=== PATIENT | female | born 1985 | race Caucasian/White ===

== ENCOUNTER 2021-07-30 13:13 | Inpatient (IN) | payer MEDICAID ==
[2021-07-30] VITALS (8 sets, daily range): BP systolic 90–123; BP diastolic 60–76
[~2021-07-30] VITALS: Ht 162.6 cm; Wt 112.0 kg
[2021-07-30] MEDS ORDERED: WITCH HAZEL-GLYCERIN PAD TOP PRN (13:45)
[2021-07-30] MEDS ORDERED: PROMETHAZINE HCL 25 MG/ML 1ML IV PRN (13:45)
[2021-07-30] MEDS ORDERED: DERMOPLAST 60ML BOTTLE TOP PRN (13:45)
[2021-07-30] MEDS ORDERED: PHISODERM TOP SOLN 240ML BTL TOP PRN (13:45)
[2021-07-30] MEDS ORDERED: BUTORPHANOL TARTRATE 2 MG/1 ML VIAL IV PRN ×2 (13:45)
[2021-07-30] MEDS ORDERED: LIDOCAINE 2%HCL (LOCAL ANESTH.) INJ 10ml MDV IJ PRN (13:45)
[2021-07-30 14:13] LABS: Basophils # (auto) 0.2 10 ^3/uL (0-0.2); Basophils % (auto) 0.9 % (0.0-2.0); Eosinophils # (auto) 0 10 ^3/uL (0-0.8); Hematocrit 34.6 % (36.0-46.0); Hemoglobin 11.5 g/dL (12.2-16.2); Lymphocytes # (auto) 1.2 10 ^3/uL (0.4-5.4); Mean Corpuscular Hemoglobin 29.4 pg (28.0-32.0); Mean Corpuscular Hgb Conc. 33.4 g/dL (32.0-36.0); Mean Corpuscular Volume 88.1 fL (80.0-100.0); Monocytes # (auto) 0.9 10 ^3/uL (0-1.3); Monocytes % (auto) 3.9 % (0.0-12.0); Neutrophils # (auto) 20.9 10 ^3/uL (1.6-8.6); Neutrophils % (auto) 90.2 % (37.0-80.0); Red Blood Cells 3.93 10^6/uL (4.0-5.20); Red Cell Distribution Width 14.5 % (11.8-14.3); White Blood Cell 23.2 10^3/uL (4.4-10.8)
[2021-07-30 14:26] LABS: Albumin 2.5 g/dL (3.4-5.0); Calcium 8.8 mg/dL (8.5-10.1); Potassium 3.7 mmol/L (3.5-5.1)
[2021-07-30 14:27] LABS: Amphetamine Screen, Urine NEGATIVE (NEGATIVE); Barbiturate Scree,Urine NEGATIVE (NEGATIVE); Benzodiazephine Screen, Urine NEGATIVE (NEGATIVE); Cannabinoid Screen, Urine POSITIVE (NEGATIVE); Cocaine Screen, Urine NEGATIVE (NEGATIVE); Opiate Scree,Urine NEGATIVE (NEGATIVE); Phencyclidine Screen, Urine NEGATIVE (NEGATIVE)
[2021-07-30 14:29] LABS: Bilirubin, Total 0.6 mg/dL (0.2-1.0); Total Protein 6.3 g/dL (6.4-8.2)
[2021-07-30] MEDS ORDERED: PENICILLIN G POTASSIUM 2,500,000 UNITS in D5W 5% 50 ML IV SCH (14:30)
[2021-07-30 14:34] LABS: INR 0.93 (0.9-1.15); Partial Thromboplastin Time 25.6 sec (23.6-33.0)
[2021-07-30] MEDS ORDERED: ROPIVACAINE HCL 200 ML EPI SCH (15:00)
[2021-07-30] MEDS ORDERED: LIDOCAINE HCL 2 %PF INJ 10ML AMP IJ ONE (15:00)
[2021-07-30] MEDS ORDERED: ePHEDrine SULFATE 50 MG/ML AMP IV ONE (15:00)
[2021-07-30] MEDS ORDERED: fentaNYL CITRATE 100 MCG/2 ML VL IV ONE (15:00)
[2021-07-30] MEDS ORDERED: NALOXONE HCL 0.4 MG/ML VIAL IV ONE (15:00)
[2021-07-30 15:16] LABS: Urine Blood Normal /uL (Negative); Urine Specific Gravity 1.024 (1.001-1.035)
[2021-07-30] MEDS: LACTATED RINGER'S 1,000 ML IV SCH ×3 (15:43→23:28)
[2021-07-30] MEDS ORDERED: ONDANSETRON HCL 4 MG/2 ML VIAL ONE (16:11)
[2021-07-30] MEDS ORDERED: SODIUM CHLORIDE LOCK 10 ML ONE (16:11)
[2021-07-30] MEDS ORDERED: ROCURONIUM 10MG/ML 10ML VIAL IV ONE (16:11)
[2021-07-30] MEDS ORDERED: MIDAZOLAM HCL 2MG/2ML 2ml VIAL (1mg/ml) ONE (16:11)
[2021-07-30] MEDS ORDERED: fentaNYL CITRATE 100 MCG/2 ML VL ONE (16:11)
[2021-07-30] MEDS ORDERED: MEPERIDINE HCL (25 MG/ML) 1ML VIAL ONE ×2 (16:11→17:44)
[2021-07-30] MEDS ORDERED: SUCCINYLCHOLINE CHLORIDE 20 MG/ML 10ML VIAL IV ONE (16:11)
[2021-07-30] MEDS ORDERED: GLYCOPYRROLATE 0.2 MG/ML 1ML VIAL ONE (16:12)
[2021-07-30] MEDS ORDERED: oxyTOCIN 10 UNIT/ML 10ML VIAL ONE (16:12)
[2021-07-30] MEDS ORDERED: PROPOFOL 10 MG/ML 20 ML IV ONE (16:12)
[2021-07-30] MEDS ORDERED: METOCLOPRAMIDE HCL 5MG/ml INJ 2ml VIAL ONE (16:12)
[2021-07-30] MEDS ORDERED: NEOSTIGMINE 1 MG/ML INJ (10mg/10ML VIAL) ONE (16:12)
[2021-07-30] MEDS ORDERED: TRANEXAMIC ACID 1,000 MG in SODIUM CHL 0.9% 100 ML IV ONE (16:15)
[2021-07-30] MEDS ORDERED: TRANEXAMIC ACID 10 ML ONE (16:19)
[2021-07-30 16:24] LABS: Urine Bacteria RARE /hpf (None Seen)
[2021-07-30 16:25] LABS: Urine Amorphous Crystal RARE /hpf (None Seen); Urine Mucus RARE (None Seen)
[2021-07-30] MEDS ORDERED: ceFAZolin 2 GM in D5W 5% 100 ML IV ONE (16:30)
[2021-07-30] MEDS ORDERED: ceFAZolin 1GM/50ML 100 ML IV ONE (16:33)
[2021-07-30] MEDS ORDERED: SUGAMMADEX 200mg/2ml Vial (100MG/ML) IV ONE (16:43)
[2021-07-30] MEDS ORDERED: METHYLERGONOVINE MALEATE 0.2 MG/ML AMP IM ONE (17:00)
[2021-07-30] MEDS ORDERED: ceFAZolin 1GM/50ML 50 ML IV ONE (18:00)
[2021-07-30] MEDS ORDERED: HYDROmorphone HCL 2 MG/ML VL/or syr IV PRN (18:00)
[2021-07-30] MEDS ORDERED: MORPHINE SULFATE 4 MG/ML SYR/VIAL IV PRN ×2 (18:00)
[2021-07-30] MEDS ORDERED: METOCLOPRAMIDE HCL 5MG/ml INJ 2ml VIAL IV PRN (18:00)
[2021-07-30] MEDS ORDERED: SIMETHICONE 80 MG CHEWABLE TABLET PO PRN (18:00)
[2021-07-30] MEDS ORDERED: GUM (CHEWING) 1 GUM CHEW CHEW ONE (18:00)
[2021-07-30] MEDS ORDERED: ePHEDrine SULFATE 50 MG/ML AMP IV PRN (18:00)
[2021-07-30] MEDS ORDERED: ONDANSETRON HCL 4 MG/2 ML VIAL IV PRN (18:00)
[2021-07-30] MEDS ORDERED: HYDR1TAB97 PO (18:06)
[2021-07-30] MEDS ORDERED: DOCU100C10 PO (18:06)
[2021-07-30] MEDS ORDERED: IBU600T PO (18:06)
[2021-07-30] MEDS: KETOROLAC TROMETH 30 MG/ML 1ML VIAL IV PRN (20:05)
[2021-07-30 21:21] LABS: Basophils # (auto) 0.1 10 ^3/uL (0-0.2); Basophils % (auto) 0.3 % (0.0-2.0); Eosinophils # (auto) 0 10 ^3/uL (0-0.8); Hematocrit 29.5 % (36.0-46.0); Hemoglobin 10.2 g/dL (12.2-16.2); Lymphocytes # (auto) 1.2 10 ^3/uL (0.4-5.4); Lymphocytes % (auto) 4.2 % (10.0-50.0); Mean Corpuscular Hemoglobin 30.3 pg (28.0-32.0); Mean Corpuscular Hgb Conc. 34.4 g/dL (32.0-36.0); Mean Corpuscular Volume 88.1 fL (80.0-100.0); Monocytes % (auto) 3.6 % (0.0-12.0); Neutrophils # (auto) 26.4 10 ^3/uL (1.6-8.6); Neutrophils % (auto) 91.9 % (37.0-80.0); Red Blood Cells 3.35 10^6/uL (4.0-5.20); Red Cell Distribution Width 14.7 % (11.8-14.3); White Blood Cell 28.7 10^3/uL (4.4-10.8)
[2021-07-30] MEDS: DOCUSATE SOD 100 MG CAP PO SCH (23:04)
[2021-07-31] VITALS (15 sets, daily range): BP systolic 91–121; BP diastolic 41–89
[2021-07-31] MEDS ORDERED: ceFAZolin 1GM/50ML 50 ML IV ONE (00:40)
[2021-07-31] MEDS: KETOROLAC TROMETH 30 MG/ML 1ML VIAL IV PRN (04:02)
[2021-07-31 06:11] LABS: Hematocrit 26.7 % (36.0-46.0); Hemoglobin 9.3 g/dL (12.2-16.2); Mean Corpuscular Hemoglobin 30.8 pg (28.0-32.0); Mean Corpuscular Hgb Conc. 34.9 g/dL (32.0-36.0); Mean Corpuscular Volume 88.2 fL (80.0-100.0); Red Blood Cells 3.03 10^6/uL (4.0-5.20); Red Cell Distribution Width 14.9 % (11.8-14.3)
[2021-07-31 06:30] LABS: Basophils % (manual) 0 (0.0-2.0); Blast Cells 0; Eosinophils % (manual) 0 (0-7); Metamyelocytes % 0; Myelocytes % 0; Promyelocytes % 0; Reactive Lymphocytes 0
[2021-07-31] MEDS: IBUPROFEN 600 MG TAB PO SCH ×4 (06:30→23:34)
[2021-07-31 07:50] LABS: Band Neutrophils % (manual) 5; Lymphocytes % (manual) 13 (10.0-50.0); Monocytes % (manual) 6 (0-12)
[2021-07-31 08:06] LABS: RPR Non Reactive (Non Reactive)
[2021-07-31] MEDS: HYDROcodone-ACET 5/325MG TAB PO PRN ×4 (08:51→21:40)
[2021-07-31] MEDS: FERROUS SULFATE 325mg EC TAB PO SCH (10:14)
[2021-07-31] MEDS: DOCUSATE SOD 100 MG CAP PO SCH (21:37)
[2021-08-01] MEDS: HYDROcodone-ACET 5/325MG TAB PO PRN ×4 (01:25→21:47)
[2021-08-01 03:00] VITALS: BP 90/63
[2021-08-01] MEDS: IBUPROFEN 600 MG TAB PO SCH ×4 (05:50→23:51)
[2021-08-01 06:45] VITALS: BP 94/67
[2021-08-01] MEDS: FERROUS SULFATE 325mg EC TAB PO SCH (09:10)
[2021-08-01 11:00] VITALS: BP 108/63
[2021-08-01 15:00] VITALS: BP 105/56
[2021-08-01 19:00] VITALS: BP 113/50
[2021-08-01] MEDS: DOCUSATE SOD 100 MG CAP PO SCH (21:33)
[2021-08-01 22:30] VITALS: BP 112/90
[2021-08-02 02:37] VITALS: BP 131/58
[2021-08-02] MEDS: HYDROcodone-ACET 5/325MG TAB PO PRN ×2 (02:37→08:08)
[2021-08-02] MEDS: IBUPROFEN 600 MG TAB PO SCH (05:52)
[2021-08-02 07:30] VITALS: BP 122/77
== END 2021-08-02 11:10 | disposition home or self-care (01) | DRG 540 ==
LOC: LDRP 13:13 → OBSVTOIN 13:32 → LDRP 21:03
PROVIDERS: ADMIT Obstetrics & Gynecology Obstetrics; ATTEND Obstetrics & Gynecology Obstetrics
PROC: 10D00Z1 Extraction of Products of Conception, Low, Open Approach (ICD-10-PCS; principal; 2021-07-30 16:44)
DX: O77.0 Labor and delivery complicated by meconium in amniotic fluid (principal); O62.1 Secondary uterine inertia; Z37.0 Single live birth; O76 Abnormality in fetal heart rate and rhythm complicating labor and delivery; Z20.822 Contact with and (suspected) exposure to COVID-19; O99.824 Streptococcus B carrier state complicating childbirth; Z3A.41 41 weeks gestation of pregnancy
CPT/HCPCS: 36415; 59025; 80053; 80307; 81001; 81002; 83036; 85007; 85025; 85027; 85048; 85610; 85730; 86592; 86703; 86850; 86900; 86901; 94760; 96360; 96361; 96374; 96375; G0378; J0330; J0690; J1885; J2250; J2405; J2590; J2704; J7060